=== PATIENT | male | born 1960 | race Hispanic/Latino ===

== ENCOUNTER 2018-11-12 03:25 | Emergency (ER) | payer MEDICARE ==
[2018-11-12] MEDS ORDERED: ONDANSETRON ODT 4 MG TAB PO ONE (04:28)
[2018-11-12] MEDS ORDERED: SODIUM CHLORIDE 0.9% 1000ML 1,000 ML IV ONE ×2 (05:47→06:38)
== END 2018-11-12 08:12 | disposition home or self-care (01) ==
LOC: EDH 03:25
DX: E86.9 Volume depletion, unspecified (principal); E11.65 Type 2 diabetes mellitus with hyperglycemia; M62.82 Rhabdomyolysis; R11.2 Nausea with vomiting, unspecified; I10 Essential (primary) hypertension; Z88.0 Allergy status to penicillin; Z72.0 Tobacco use; Z79.4 Long term (current) use of insulin; Z98.890 Other specified postprocedural states
CPT/HCPCS: 96361; 96374; 99284; J7030 ×2

== ENCOUNTER 2019-11-05 17:44 | Emergency (ER) | payer OTHER, MEDICARE ==
[2019-11-05 19:10] LABS: BASOPHILS % (AUTO) 0.7 % (0.0-5.0); EOSINOPHILS % (AUTO) 0.2 % (0.0-8.0); HEMATOCRIT 41.1 % (42-54); LYMPHOCYTES % (AUTO) 44.1 % (21.0-51.0); MEAN CORPUSCULAR HEMOGLOBIN 33.6 pg (27.0-33.0); MEAN CORPUSCULAR VOLUME 90.9 fL (79-99); MONOCYTES % (AUTO) 4.9 % (3.0-13.0); NEUTROPHILS % (AUTO) 49.9 % (40.0-77.0); PLATELET COUNT (AUTO) 277 K/uL (130-400); RED BLOOD CELL COUNT(AUTO) 4.52 MIL/uL (4.50-6.20); RED CELL DISTRIBUTION WIDTH 11.9 % (11.0-15.5); WHITE BLOOD COUNT (AUTO) 6.2 K/uL (4.8-10.8)
[2019-11-05 19:15] LABS: APPEARANCE,URINE Clear (CLEAR); BILIRUBIN,URINE Negative (NEGATIVE); COLOR,URINE Yellow (YELLOW); GLUCOSE, URINE (UA) >=1000 mg/dL (NEGATIVE); KETONES,URINE 40 mg/dL (NEGATIVE); LEUKOCYTE ESTERASE ,URINE Negative (NEGATIVE); NITRATE,URINE Negative (NEGATIVE); OCCULT BLOOD,URINE Negative (NEGATIVE); PH,URINE 6.5 (5.0-8.0); PROTEIN,URINE Negative (NEGATIVE); UROBILINOGEN,URINE 0.2 mg/dL (0.2-1.0)
[2019-11-05] MEDS ORDERED: THIAMINE HCL 100 MG/ML 2ML VIAL ONE (19:21)
[2019-11-05 19:23] LABS: AMPHET/METH SCREEN,URINE NEGATIVE (NEGATIVE); BARBITURATE SCREEN, URINE NEGATIVE (NEGATIVE); BENZODIAZEPINES SCREEN,URINE NEGATIVE (NEGATIVE); CANNABINOID SCREEN,URINE NEGATIVE (NEGATIVE); COCAINE SCREEN,URINE POSITIVE (NEGATIVE); CREATININE 0.9 mg/dL (0.5-1.5); OPIATE SCREEN,URINE NEGATIVE (NEGATIVE); PHENCYCLIDINE SCREEN,URINE NEGATIVE (NEGATIVE); POTASSIUM 3.5 mmol/L (3.5-5.1)
[2019-11-05 19:24] LABS: BACTERIA,URINE Few /HPF (None Seen); MUCUS,URINE Few LPF (None Seen); SQUAMOUS EPITHELIAL CELL,UR Few /HPF (0-2)
[2019-11-05 19:26] LABS: ALCOHOL, BLOOD 11 mg/dL (0-10)
[2019-11-05 19:28] LABS: BILIRUBIN,TOTAL 0.4 mg/dL (0.2-1.0)
[2019-11-05] MEDS ORDERED: INSULIN HUMULIN R 100 UNIT/ML 3ML ONE (19:42)
[2019-11-05 19:44] LABS: ACETAMINOPHEN < 1 mcg/mL (10-29); SALICYLATE < 2.8 mg/dL (2.8-20.0)
== END 2019-11-06 08:33 | disposition short-term general hospital (02) ==
LOC: EDH 17:44
DX: F10.230 Alcohol dependence with withdrawal, uncomplicated (principal); F14.10 Cocaine abuse, uncomplicated; F32.9 Major depressive disorder, single episode, unspecified; E11.9 Type 2 diabetes mellitus without complications; I10 Essential (primary) hypertension; Z72.0 Tobacco use; Z88.0 Allergy status to penicillin
CPT/HCPCS: 36415; 36600; 80053; 80305; 81001; 82010 ×2; 85025; 96374; 96375; 99285; G0480 ×2; G0481; J1815; J3411

== ENCOUNTER 2019-11-17 04:51 | Observation (INO) | payer OTHER, MEDICARE ==
[~2019-11-17] VITALS: Ht 165.1 cm; Wt 61.2 kg
[2019-11-17 05:21] LABS: APPEARANCE,URINE Clear (CLEAR); BILIRUBIN,URINE Negative (NEGATIVE); COLOR,URINE Yellow (YELLOW); GLUCOSE, URINE (UA) >=1000 mg/dL (NEGATIVE); KETONES,URINE 15 mg/dL (NEGATIVE); LEUKOCYTE ESTERASE ,URINE Small (NEGATIVE); NITRATE,URINE Negative (NEGATIVE); OCCULT BLOOD,URINE Negative (NEGATIVE); PH,URINE 5.5 (5.0-8.0); PROTEIN,URINE POS 1+ mg/dL (NEGATIVE)
[2019-11-17 05:30] LABS: AMPHET/METH SCREEN,URINE NEGATIVE (NEGATIVE); BARBITURATE SCREEN, URINE NEGATIVE (NEGATIVE); BENZODIAZEPINES SCREEN,URINE NEGATIVE (NEGATIVE); CANNABINOID SCREEN,URINE NEGATIVE (NEGATIVE); COCAINE SCREEN,URINE POSITIVE (NEGATIVE); OPIATE SCREEN,URINE NEGATIVE (NEGATIVE); PHENCYCLIDINE SCREEN,URINE NEGATIVE (NEGATIVE)
[2019-11-17 05:31] LABS: BASOPHILS % (AUTO) 0.5 % (0.0-5.0); EOSINOPHILS % (AUTO) 2.7 % (0.0-8.0); HEMATOCRIT 38.4 % (42-54); LYMPHOCYTES % (AUTO) 30.3 % (21.0-51.0); MEAN CORPUSCULAR HEMOGLOBIN 32.8 pg (27.0-33.0); MEAN CORPUSCULAR HGB CONC 35.4 g/dL (32.0-36.0); MEAN CORPUSCULAR VOLUME 92.5 fL (79-99); MONOCYTES % (AUTO) 7.2 % (3.0-13.0); NEUTROPHILS % (AUTO) 59.2 % (40.0-77.0); PLATELET COUNT (AUTO) 282 K/uL (130-400); RED BLOOD CELL COUNT(AUTO) 4.15 MIL/uL (4.50-6.20); RED CELL DISTRIBUTION WIDTH 12.2 % (11.0-15.5); WHITE BLOOD COUNT (AUTO) 7.8 K/uL (4.8-10.8)
[2019-11-17 05:39] LABS: BACTERIA,URINE Few /HPF (None Seen); RBC,URINE 0-1 /HPF (0-1)
[2019-11-17 05:41] LABS: POTASSIUM 4.2 mmol/L (3.5-5.1)
[2019-11-17 05:45] LABS: ALBUMIN 3.7 g/dL (3.5-5.0); BILIRUBIN,TOTAL 0.4 mg/dL (0.2-1.0); SALICYLATE 3.5 mg/dL (2.8-20.0); TOTAL PROTEIN, SERUM 7.1 g/dL (6.0-8.3)
[2019-11-17] MEDS ORDERED: LORAZEPAM 0.5 MG TABLET ONE (09:01)
[2019-11-17] MEDS: THIAMINE HCL 100 MG, FOLIC ACID 1 MG, M.V.I. IV [ADULT] 10 ML in SODIUM CHLORIDE 0.9% 1... IV SCH (12:15)
[2019-11-17] MEDS ORDERED: PHARMACY COMMUNICATION MISC PRN (12:15)
[2019-11-17] MEDS ORDERED: LACTATED RINGERS 1000ML 1,000 ML IV SCH (12:15)
[2019-11-17 13:46] LABS: HEMOGLOBIN A1C 11.8 % (4.0-6.0)
--- NOTE | 2019-11-17 14:00 | NUR ---
CM NOTE/IA UNSUCCESSFUL MEET WITH PATIENT IN ROOM. CURRENTLY ON 1:1 MONITORING. PATIENT ASLEEP. PERSON LISTED MOTHER ON FACESHEET CALLED, NO ANSWER, UNABLE TO LEAVE VOICEMAIL. CM TO F/U FOR IA. Addendum: 11/18/19 at 0959 by ROSANA VILLAFANA RN CM Amended: Links added.
[2019-11-17] MEDS: INSULIN HUMULIN R 100 UNIT/ML 3ML SQ SCH ×2 (14:30→20:20)
[2019-11-17] MEDS ORDERED: INSULIN HUMULIN R 100 UNIT/ML 3ML SQ SCH (16:30)
[2019-11-17] MEDS ORDERED: HYDRALAZINE HCL 20 MG/ML VIAL IV PRN (17:45)
--- NOTE | 2019-11-17 20:00 | NUR ---
ADMIT PT ADMITTED TO ROOM 303, AWAKE BUT CLAIMS OF FEELING ANXIOUS. CLAIMS OF PAIN TO LOWER EXTREMITIES. ADMISSION CARE DONE. ADMISSION DATA BASE COMPLETED. ORIENTED TO ROOM AND UNIT. SITTER WITH PT IN ROOM. IN FOR MORE CARE AND MANAGEMENT. Addendum: 11/17/19 at 2305 by SHYANNE GREY RN RN Amended: Links added.
[2019-11-17] MEDS: CHLORDIAZEPOXIDE HCL 25 MG CAP PO PRN (20:17)
[2019-11-17] MEDS: FAMOTIDINE 20MG TAB 20 MG TAB PO SCH (20:17)
[2019-11-17] MEDS: INSULIN GLARGINE 100 UNITS/ML 10 ML VIAL SQ SCH (20:20)
[2019-11-17 20:26] VITALS: BP 131/83
--- NOTE | 2019-11-17 22:00 | NUR ---
FEED PT ASKS FOR FOOD, PROVIDED WITH SANDWICH AND JUICE. PT ATE WITH GOOD APPETITE. KEPT RESTED. WILL MONITOR PT.
[2019-11-17 23:00] VITALS: BP 135/78
[2019-11-17] MEDS ORDERED: ACETAMINOPHEN 325 MG TAB PO PRN (23:30)
--- NOTE | 2019-11-18 02:00 | NUR ---
ROUNDS PT RESTING WELL, FAIRLY ASLEEP. NO DISTRESS NOTED. KEPT UNDISTURBED FOR NOW. SITTER AT BEDSIDE.
[2019-11-18 03:50] VITALS: BP 126/85
[2019-11-18 04:46] LABS: BASOPHILS % (AUTO) 0.8 % (0.0-5.0); EOSINOPHILS % (AUTO) 0.5 % (0.0-8.0); HEMATOCRIT 36.8 % (42-54); LYMPHOCYTES % (AUTO) 51.9 % (21.0-51.0); MEAN CORPUSCULAR HEMOGLOBIN 33.2 pg (27.0-33.0); MEAN CORPUSCULAR HGB CONC 35.3 g/dL (32.0-36.0); MEAN CORPUSCULAR VOLUME 94.1 fL (79-99); MONOCYTES % (AUTO) 7.8 % (3.0-13.0); NEUTROPHILS % (AUTO) 38.8 % (40.0-77.0); PLATELET COUNT (AUTO) 268 K/uL (130-400); RED BLOOD CELL COUNT(AUTO) 3.91 MIL/uL (4.50-6.20); RED CELL DISTRIBUTION WIDTH 11.9 % (11.0-15.5); WHITE BLOOD COUNT (AUTO) 6.1 K/uL (4.8-10.8)
[2019-11-18 05:07] LABS: ALBUMIN 2.9 g/dL (3.5-5.0); BILIRUBIN,TOTAL 0.5 mg/dL (0.2-1.0); CREATININE 0.8 mg/dL (0.5-1.5); POTASSIUM 3.6 mmol/L (3.5-5.1)
--- NOTE | 2019-11-18 05:28 | NUR ---
ROUNDS PT SLEPT AT LONG INTERVALS DURING THE SHIFT. NO VERBALIZATION OF SUICIDAL IDEATIONS NOTED. KEPT COMFORTABLE. FOR MORE CARE AND MANAGEMENT.
[2019-11-18] MEDS: INSULIN HUMULIN R 100 UNIT/ML 3ML SQ SCH ×4 (06:02→21:06)
[2019-11-18 07:24] VITALS: BP 127/86
[2019-11-18] MEDS ORDERED: INSULIN GLARGINE 100 UNITS/ML 10 ML VIAL SQ SCH (09:00)
--- NOTE | 2019-11-18 09:09 | NUR ---
MET W PATIENT AT BEDSIDE, ONE TO ONE SITTER PRESENT SUICIDAL IDEATION PRECUATIONS. PATIENT PRIOR TO ADMISSION IS ACTIVE, INDPENDENT OF ADLS, NO DME OR PROVIDER, DRIVES- IS CAREGIVER FOR MOTHER AND HAS BEEN LIVING WITH HER. SHE HAS HAD CANCER FOR SEVERAL YEARS AND HE IS THE CAREGIVER, TAKES HER TO HER APPOINTMENTS, ETC. HAS BEEN A CLIENT OF [facility] FOR MANY YEARS. DISABLED SECOND TO MENTAL HEALTH ISSUED. HAS KNOWN THAT HE HAS DIABETES ABOUT TWO YEARS. USED TO GO TO [facility]-" I DON'T KNOW THE NAME OF THE DOCTORS, THEY JUST WANT YOU TO PRAY YOUR TROUBLES AWAY, SO I DON'T GO THERE ANYMORE." DOES NOT CHECK HIS SUGAR, NO GLUCOMETER. WHEN ASKED ABOUT LIVING ARRANGEMENTS, 'I AM HOMELESS NOW, I CAN'T GO BACK THERE' PATIENT CORRECTED MOMS NUMBER IN THE FACE SHEET, CM ASKED IF OK TO TALK TO HER, NO DEFINITE CONSENT TO TALK TO FAMILY GIVEN. PENDING MEDICAL CLEARANCE- CONTROL OF BLOOD SUGAR , THEN SCREENING FOR ADMISSION
[2019-11-18] MEDS: FAMOTIDINE 20MG TAB 20 MG TAB PO SCH ×2 (09:43→21:03)
[2019-11-18] MEDS: ENOXAPARIN SODIUM 40 MG/0.4 ML SYRINGE SQ SCH (09:54)
[2019-11-18] MEDS: LEVOFLOXACIN 500 MG/D5W 100 ML 100 ML IV SCH ×2 (09:59→11:52)
[2019-11-18 10:38] VITALS: BP 127/82
[2019-11-18] MEDS: CHLORDIAZEPOXIDE HCL 25 MG CAP PO PRN (13:25)
[2019-11-18] MEDS: THIAMINE HCL 100 MG, FOLIC ACID 1 MG, M.V.I. IV [ADULT] 10 ML in SODIUM CHLORIDE 0.9% 1... IV SCH (13:28)
--- NOTE | 2019-11-18 14:40 | NUR ---
DR. ROBERTS AT BEDSIDE STATES PATIENT IS CLEARED AND NEEDS TROPICAL TO SCREEN AND FOLLOW UP.
--- NOTE | 2019-11-18 14:47 | NUR ---
Tropical aware spoke with Justyna, pending screening Cleared by Dr. Luke.
[2019-11-18] MEDS: ALPRAZOLAM 1 MG TAB PO SCH ×2 (14:57→21:04)
[2019-11-18 15:56] VITALS: BP 118/85
--- NOTE | 2019-11-18 17:00 | NUR ---
sent info/email to [facility]-- advised pt not medically clear Addendum: 11/19/19 at 1134 by SHARON CAMACHO RN CM Amended: Links added.
--- NOTE | 2019-11-18 19:21 | NUR ---
Tropical screened patient does not meet criteria. social media intern will go and evaluate patient tomorrow.
[2019-11-18 19:45] VITALS: BP 112/78
[2019-11-18] MEDS: VENLAFAXINE HCL XR 37.5 MG CAP PO SCH (21:04)
[2019-11-18] MEDS: INSULIN GLARGINE 100 UNITS/ML 10 ML VIAL SQ SCH (21:07)
[2019-11-19] VITALS (7 sets, daily range): BP systolic 112–149; BP diastolic 67–92
[2019-11-19 05:30] LABS: BASOPHILS % (AUTO) 0.5 % (0.0-5.0); EOSINOPHILS % (AUTO) 0.5 % (0.0-8.0); HEMATOCRIT 37.3 % (42-54); LYMPHOCYTES % (AUTO) 45.7 % (21.0-51.0); MEAN CORPUSCULAR HEMOGLOBIN 33.7 pg (27.0-33.0); MEAN CORPUSCULAR HGB CONC 35.9 g/dL (32.0-36.0); MEAN CORPUSCULAR VOLUME 93.7 fL (79-99); MONOCYTES % (AUTO) 6.6 % (3.0-13.0); NEUTROPHILS % (AUTO) 46.5 % (40.0-77.0); PLATELET COUNT (AUTO) 260 K/uL (130-400); RED BLOOD CELL COUNT(AUTO) 3.98 MIL/uL (4.50-6.20); RED CELL DISTRIBUTION WIDTH 11.5 % (11.0-15.5); WHITE BLOOD COUNT (AUTO) 5.8 K/uL (4.8-10.8)
[2019-11-19] MEDS: INSULIN HUMULIN R 100 UNIT/ML 3ML SQ SCH ×2 (05:48→13:09)
[2019-11-19 05:49] LABS: CREATININE 0.9 mg/dL (0.5-1.5); POTASSIUM 3.6 mmol/L (3.5-5.1)
[2019-11-19] MEDS ORDERED: INSULIN GLARGINE 100 UNITS/ML 10 ML VIAL SQ SCH (08:15)
[2019-11-19] MEDS: FAMOTIDINE 20MG TAB 20 MG TAB PO SCH ×2 (09:51→21:19)
[2019-11-19] MEDS: ALPRAZOLAM 1 MG TAB PO SCH ×3 (09:52→21:19)
[2019-11-19] MEDS: ENOXAPARIN SODIUM 40 MG/0.4 ML SYRINGE SQ SCH (09:55)
--- NOTE | 2019-11-19 11:10 | NUR ---
SS Referral - Suicidal Ideations SW unable to speak to pt who is has been seen by Dr Montes and Roseline. Per nurse Bradley, Dr Montes made changes to medications and pt is sleeping very soundly at this time. Pt is pt at [facility] and has been screened for possible placement. Per [facility], pt does not meet criteria and can dc home or to [facility] and [facility] reports nurse. [facility] to f/u with pt after dc. Per [facility] screening notes, pt is non compliant with medications, and psych care and is drug user. SW to follow and assist as needed
[2019-11-19] MEDS: LEVOFLOXACIN 500 MG/D5W 100 ML 100 ML IV SCH (11:19)
[2019-11-19] MEDS: THIAMINE HCL 100 MG, FOLIC ACID 1 MG, M.V.I. IV [ADULT] 10 ML in SODIUM CHLORIDE 0.9% 1... IV SCH (12:15)
--- NOTE | 2019-11-19 16:28 | NUR ---
CALL REC'D FROM MOTHER STATES SOME ONE FROM [facility] CALLED HER, WHEN SHE CALLED BACK WS REFERRED TO CM, THIS VALIDATION CONSULTANT ADVISED HER THAT THE PATIENT HAD NOT GIVE DIRECT PERMISSION TO DISCUSS HIS CASE. MOM STATES YOU CANNOT TELL ME ANYTHING I DO NOT ALREADY KNOW SHE STATES ' I KNOW HE SAYS HE IS HOMELESS, BUT THE IS NOT, HE IS THE ONE THAT LEFT, I SAID GO IF YOU WANT TO. I AM [age], WITH CANCER AND VERY TIRED AND HE SAYS A LOT OF NEGATIVE THINGS AND DOES A LOT OF BAD THINGS AND I JUST WANT HIM TO COMPLETE ANY PROGRAM THAT HE STATES, COMPLETE IT AND GET BETTER. THAT'S ALL. WILL PASS ON TO SW THAT PATIENT IS NOT HOMELESS Addendum: 11/19/19 at 1633 by SHARON CAMACHO RN CM Amended: Links added.
[2019-11-19] MEDS: METFORMIN HCL 500 MG TABLET PO SCH (17:08)
[2019-11-19] MEDS ORDERED: GLUCAGON 1MG KIT 1 MG ML IM PRN (18:00)
[2019-11-19] MEDS ORDERED: DEXTROSE 50%-WATER 50 ML DISP.SYRIN IV PRN (18:00)
[2019-11-19] MEDS: VENLAFAXINE HCL XR 37.5 MG CAP PO SCH (21:19)
[2019-11-20 03:13] VITALS: BP 124/74
[2019-11-20 05:16] LABS: CREATININE 0.7 mg/dL (0.5-1.5); MAGNESIUM 1.6 mg/dL (1.80-2.40); POTASSIUM 3.5 mmol/L (3.5-5.1)
[2019-11-20 08:00] VITALS: BP 136/96
[2019-11-20] MEDS ORDERED: INSULIN GLARGINE 100 UNITS/ML 10 ML VIAL SQ SCH (10:00)
[2019-11-20] MEDS: FAMOTIDINE 20MG TAB 20 MG TAB PO SCH (10:28)
[2019-11-20] MEDS: METFORMIN HCL 500 MG TABLET PO SCH (10:28)
[2019-11-20] MEDS: ENOXAPARIN SODIUM 40 MG/0.4 ML SYRINGE SQ SCH (10:30)
[2019-11-20 11:33] VITALS: BP 145/92
[2019-11-20] MEDS: LEVOFLOXACIN 500 MG/D5W 100 ML 100 ML IV SCH (11:36)
== END 2019-11-20 14:00 | disposition left against medical advice (07) ==
LOC: EDH 04:51 → EDHIP 11:57 → 3AH 19:44
PROVIDERS: ADMIT Internal Medicine; ATTEND Internal Medicine
DX: F14.90 Cocaine use, unspecified, uncomplicated (principal); R45.851 Suicidal ideations; F10.10 Alcohol abuse, uncomplicated; F31.9 Bipolar disorder, unspecified; E11.65 Type 2 diabetes mellitus with hyperglycemia; F41.1 Generalized anxiety disorder; F60.6 Avoidant personality disorder; F60.7 Dependent personality disorder; H54.62 Unqualified visual loss, left eye, normal vision right eye; Z91.14 Patient's other noncompliance with medication regimen; Z91.5 Personal history of self-harm; Y90.9 Presence of alcohol in blood, level not specified
CPT/HCPCS: 36415 ×4; 80048 ×2; 80053 ×2; 80305; 81001; 82010; 82550; 82948 ×10; 83036; 83735; 84145; 84443; 84484; 85025 ×3; 87088; 96365; 96366 ×4; 96367; 96372 ×5; 99284; G0378 ×14; G0480 ×2; G0481; J1650 ×3; J1815 ×4; J1956 ×3; J3411 ×3; J3490 ×3; J7030 ×3

== ENCOUNTER 2020-08-02 14:43 | Inpatient (IN) | payer OTHER, MEDICARE ==
[~2020-08-02] VITALS: Ht 165.1 cm; Wt 56.2 kg
[2020-08-02] MEDS ORDERED: 0.9%NACL 1000ML 1,000 ML IV ONE (15:00)
[2020-08-02 15:07] LABS: BASOPHILS % (AUTO) 0.3 % (0.0-5.0); HEMATOCRIT 40.3 % (42-54); LYMPHOCYTES % (AUTO) 9.1 % (21.0-51.0); MEAN CORPUSCULAR HEMOGLOBIN 32.4 pg (27.0-33.0); MEAN CORPUSCULAR HGB CONC 33.3 g/dL (32.0-36.0); MEAN CORPUSCULAR VOLUME 97.6 fL (79-99); MONOCYTES % (AUTO) 7.3 % (3.0-13.0); PLATELET COUNT (AUTO) 474 K/uL (130-400); RED BLOOD CELL COUNT(AUTO) 4.13 MIL/uL (4.50-6.20); RED CELL DISTRIBUTION WIDTH 12.3 % (11.0-15.5); WHITE BLOOD COUNT (AUTO) 22.2 K/uL (4.8-10.8)
[2020-08-02 15:35] LABS: ABG BASE EXCESS -26.1 mmol/L (-2.0-3.0); ABG HCO3 2.6 mmol/L (21.0-28.0); ABG OXYGEN SATURATION 98.2 % (95.0-99.0); ABG PCO2 < 15 mmHg (35-48)
[2020-08-02 15:41] LABS: INR 1.31 (0.85-1.15); PROTHROMBIN TIME 13.9 SEC (9.6-11.6)
[2020-08-02 15:42] LABS: PARTIAL THROMBOPLASTIN TIME 31.8 SEC (26.3-35.5)
[2020-08-02] MEDS ORDERED: 0.9%NACL 1000ML 2,000 ML IV ONE (15:43)
[2020-08-02 15:45] LABS: ALBUMIN 2.7 g/dL (3.5-5.0); BILIRUBIN,TOTAL 0.5 mg/dL (0.2-1.0); CREATININE 1.5 mg/dL (0.5-1.5); POTASSIUM 3.7 mmol/L (3.5-5.1); TOTAL PROTEIN, SERUM 8.9 g/dL (6.0-8.3)
[2020-08-02] MEDS ORDERED: SODIUM BICARB 50MEQ 50ML VIAL 50 ML ONE (15:47)
[2020-08-02 15:49] LABS: B-TYPE NATRIURETIC PEPTIDE 30 pg/mL (0-100)
[2020-08-02] MEDS ORDERED: 0.9%NACL 100ML 100 ML IV ONE (15:57)
[2020-08-02] MEDS ORDERED: 0.9%NACL 1000ML 1,000 ML IV SCH (16:00)
[2020-08-02] MEDS ORDERED: INSULIN HUMULIN R 100 UNIT/ML 3ML ONE (16:00)
[2020-08-02] MEDS ORDERED: DEXTROSE 5 %-0.45 % NACL 1,000 ML IV PRN (16:00)
[2020-08-02] MEDS ORDERED: MAGNESIUM 2GM PREMIX 50ML 50 ML IV SCH (16:30)
[2020-08-02 16:33] LABS: APPEARANCE,URINE Cloudy (CLEAR); BILIRUBIN,URINE Negative (NEGATIVE); COLOR,URINE Yellow (YELLOW); GLUCOSE, URINE (UA) >=1000 mg/dL (NEGATIVE); KETONES,URINE >=160 mg/dL (NEGATIVE); LEUKOCYTE ESTERASE ,URINE Small (NEGATIVE); NITRATE,URINE Negative (NEGATIVE); OCCULT BLOOD,URINE Moderate (NEGATIVE); PROTEIN,URINE POS 2+ mg/dL (NEGATIVE); UROBILINOGEN,URINE 0.2 mg/dL (0.2-1.0)
[2020-08-02 16:40] LABS: AMPHET/METH SCREEN,URINE NEGATIVE (NEGATIVE); BARBITURATE SCREEN, URINE NEGATIVE (NEGATIVE); BENZODIAZEPINES SCREEN,URINE NEGATIVE (NEGATIVE); CANNABINOID SCREEN,URINE NEGATIVE (NEGATIVE); COCAINE SCREEN,URINE POSITIVE (NEGATIVE); OPIATE SCREEN,URINE NEGATIVE (NEGATIVE); PHENCYCLIDINE SCREEN,URINE NEGATIVE (NEGATIVE)
[2020-08-02 16:55] LABS: BACTERIA,URINE Few /HPF (None Seen); MUCUS,URINE Few LPF (None Seen); SQUAMOUS EPITHELIAL CELL,UR 0-2 /HPF (0-2); YEAST,URINE BUDDING Moderate /HPF (None Seen)
[2020-08-02] MEDS ORDERED: LEVOFLOXACIN 500 MG/D5W 100 ML 100 ML IV SCH (17:00)
[2020-08-02] MEDS ORDERED: THIAMINE HCL 100 MG/ML 2ML VIAL IVP SCH (17:00)
[2020-08-02] MEDS ORDERED: INSULIN HUMULIN R 100 UNIT/ML 3ML IV SCH (17:15)
[2020-08-02] MEDS ORDERED: PHARMACY COMMUNICATION MISC SCH (17:30)
[2020-08-02] MEDS ORDERED: FOLIC ACID 5 MG/ML VIAL IV SCH (17:30)
[2020-08-02 17:40] LABS: CREATININE 1.4 mg/dL (0.5-1.5); POTASSIUM 4.1 mmol/L (3.5-5.1)
[2020-08-02] MEDS ORDERED: ALOGRITHM #1 100 UNIT INSULIN/NS 100ML IV SCH ×2 (17:45)
[2020-08-02] MEDS ORDERED: 0.9%NACL 50ML 50 ML IV ONE (17:54)
[2020-08-02 20:36] VITALS: BP 126/74
[2020-08-02 21:00] VITALS: BP 116/66
[2020-08-02] MEDS: 0.9%NACL 1000ML 1,000 ML IV SCH ×2 (21:00→21:18)
[2020-08-02] MEDS: FAMOTIDINE 20MG VIAL IV SCH (21:18)
[2020-08-02 22:00] VITALS: BP 127/85
[2020-08-02 23:00] VITALS: BP 125/75
[2020-08-02 23:09] LABS: CREATININE 1.1 mg/dL (0.5-1.5)
[2020-08-02 23:26] LABS: POTASSIUM 2.9 mmol/L (3.5-5.1)
[2020-08-02] MEDS: POTASSIUM CHLORIDE 10MEQ/100ML 100 ML IV PRN (23:28)
[2020-08-02] MEDS ORDERED: D5W-1/2 NS/20MEQ KCL 1,000 ML IV ONE (23:47)
[2020-08-03] VITALS (24 sets, daily range): BP systolic 94–138; BP diastolic 51–86
[2020-08-03] MEDS: 0.9%NACL 1000ML 1,000 ML IV SCH (00:05)
[2020-08-03] MEDS: POTASSIUM CHLORIDE 10MEQ/100ML 100 ML IV PRN (00:19)
[2020-08-03] MEDS ORDERED: POTASSIUM CHLORIDE 10MEQ/100ML 100 ML IV ONE ×2 (01:40→02:32)
[2020-08-03] MEDS ORDERED: ACETAMINOPHEN 325 MG TAB ONE (02:27)
[2020-08-03] MEDS ORDERED: ACETAMINOPHEN 325 MG TAB PO PRN (02:30)
[2020-08-03 04:01] LABS: HEMOGLOBIN A1C 13.2 % (4.0-6.0)
[2020-08-03 04:58] LABS: CREATININE 0.9 mg/dL (0.5-1.5); POTASSIUM 3.4 mmol/L (3.5-5.1)
[2020-08-03] MEDS ORDERED: D5W-1/2 NS/20MEQ KCL 1,000 ML IV ONE (06:03)
[2020-08-03] MEDS: POTASSIUM CHLORIDE 10MEQ/100ML 10 MEQ/100 ML ML IV PRN ×3 (06:08→13:17)
[2020-08-03] MEDS: D5W-1/2 NS/20MEQ KCL 1,000 ML IV SCH ×3 (07:07→19:35)
[2020-08-03] MEDS: ENOXAPARIN SODIUM 30 MG/0.3 ML SQ SCH (09:31)
[2020-08-03] MEDS: FOLIC ACID 5 MG/ML VIAL IV SCH (09:31)
[2020-08-03] MEDS: THIAMINE HCL 100 MG/ML 2ML VIAL IVP SCH (09:32)
[2020-08-03] MEDS ORDERED: CLONAZEPAM 1MG TAB PO SCH (11:00)
[2020-08-03] MEDS ORDERED: LORAZEPAM 2 MG/ML 1 ML VIAL IVP SCH (11:00)
[2020-08-03 12:27] LABS: CREATININE 0.9 mg/dL (0.5-1.5)
[2020-08-03 12:31] LABS: POTASSIUM 2.7 mmol/L (3.5-5.1)
[2020-08-03] MEDS ORDERED: LIDOCAINE HCL-MPF 1% 2ML VIAL IV PRN (12:45)
[2020-08-03] MEDS ORDERED: POTASSIUM CHLORIDE 10% ELIXIR 20 MEQ/15 ML UDCUP PO PRN (12:45)
[2020-08-03] MEDS ORDERED: KCL 20 MEQ ERTAB PO SCH ×2 (14:15→19:45)
[2020-08-03 17:14] LABS: CREATININE 0.8 mg/dL (0.5-1.5); POTASSIUM 3.3 mmol/L (3.5-5.1)
[2020-08-03] MEDS: LEVOFLOXACIN 250 MG/D5W 50ML 50 ML IVPB SCH (18:34)
[2020-08-03] MEDS: CLONAZEPAM 1MG TAB PO SCH (20:10)
[2020-08-03] MEDS: POTASSIUM CHLORIDE 20MEQ/100ML 100 ML IV PRN ×2 (20:10→22:30)
[2020-08-03] MEDS: FAMOTIDINE 20MG VIAL IV SCH (20:11)
[2020-08-03 20:45] LABS: CREATININE 0.8 mg/dL (0.5-1.5)
[2020-08-03 20:46] LABS: POTASSIUM 2.8 mmol/L (3.5-5.1)
[2020-08-03] MEDS: KCL 20 MEQ ERTAB PO PRN ×2 (21:37→23:05)
[2020-08-04] VITALS (13 sets, daily range): BP systolic 91–126; BP diastolic 61–83
[2020-08-04] MEDS: D5W-1/2 NS/20MEQ KCL 1,000 ML IV SCH ×2 (00:17→05:45)
[2020-08-04] MEDS: POTASSIUM CHLORIDE 20MEQ/100ML 100 ML IV PRN ×2 (00:36→21:28)
[2020-08-04 00:44] LABS: CREATININE 0.7 mg/dL (0.5-1.5); POTASSIUM 3.6 mmol/L (3.5-5.1)
[2020-08-04 04:19] LABS: CREATININE 0.7 mg/dL (0.5-1.5); POTASSIUM 3.6 mmol/L (3.5-5.1)
[2020-08-04 05:30] LABS: BASOPHILS % (AUTO) 0.2 % (0.0-5.0); EOSINOPHILS % (AUTO) 0.1 % (0.0-8.0); HEMATOCRIT 33.9 % (42-54); LYMPHOCYTES % (AUTO) 10.9 % (21.0-51.0); MEAN CORPUSCULAR HEMOGLOBIN 32.3 pg (27.0-33.0); MEAN CORPUSCULAR HGB CONC 36.3 g/dL (32.0-36.0); MONOCYTES % (AUTO) 11.4 % (3.0-13.0); NUCLEATED RED BLOOD CELLS 0.2 % (0.0-0.19); PLATELET COUNT (AUTO) 360 K/uL (130-400); RED BLOOD CELL COUNT(AUTO) 3.81 MIL/uL (4.50-6.20); RED CELL DISTRIBUTION WIDTH 12.1 % (11.0-15.5); WHITE BLOOD COUNT (AUTO) 12.5 K/uL (4.8-10.8)
[2020-08-04] MEDS ORDERED: PHARMACY COMMUNICATION MISC SCH (07:45)
[2020-08-04] MEDS: THIAMINE HCL 100 MG/ML 2ML VIAL IVP SCH (07:55)
[2020-08-04 07:56] LABS: CREATININE 0.8 mg/dL (0.5-1.5); POTASSIUM 3.5 mmol/L (3.5-5.1)
[2020-08-04] MEDS: FOLIC ACID 5 MG/ML VIAL IV SCH (07:56)
[2020-08-04] MEDS: CLONAZEPAM 1MG TAB PO SCH ×2 (07:56→21:35)
[2020-08-04] MEDS: ENOXAPARIN SODIUM 30 MG/0.3 ML SQ SCH (07:56)
[2020-08-04] MEDS ORDERED: VANCOMYCIN PROTOCOL PER PHARMACY IV SCH (08:00)
[2020-08-04] MEDS: LACTATED RINGERS IV SCH ×2 (08:18→13:10)
[2020-08-04] MEDS: DEXTROSE 5% IV SCH ×2 (08:18→13:10)
[2020-08-04] MEDS: POTASSIUM CHLORIDE IV SCH ×2 (08:18→13:10)
[2020-08-04] MEDS ORDERED: INSULIN GLARGINE 100 UNITS/ML 10 ML VIAL SQ SCH (08:45)
[2020-08-04] MEDS: VANCOMYCIN 1G/250ML KIT 250 ML IV SCH ×2 (11:41→21:35)
[2020-08-04 11:58] LABS: CREATININE 0.7 mg/dL (0.5-1.5); POTASSIUM 3.3 mmol/L (3.5-5.1)
[2020-08-04] MEDS: INSULIN HUMULIN R 100 UNIT/ML 3ML SQ SCH ×5 (12:18→21:39)
[2020-08-04 17:22] LABS: CREATININE 0.8 mg/dL (0.5-1.5); POTASSIUM 3.1 mmol/L (3.5-5.1)
[2020-08-04] MEDS: LEVOFLOXACIN 250 MG/D5W 50ML 50 ML IVPB SCH (17:32)
[2020-08-04 20:29] LABS: POTASSIUM 2.9 mmol/L (3.5-5.1)
[2020-08-04] MEDS: FAMOTIDINE 20MG VIAL IV SCH (21:31)
[2020-08-04] MEDS: DEXTROSE 5%-LACTATED RINGERS 1,000 ML IV SCH (21:35)
[2020-08-05 03:50] VITALS: BP 141/85
[2020-08-05 05:30] LABS: CREATININE 0.7 mg/dL (0.5-1.5)
[2020-08-05 05:37] LABS: POTASSIUM 2.4 mmol/L (3.5-5.1)
[2020-08-05] MEDS: DEXTROSE 5%-LACTATED RINGERS 1,000 ML IV SCH (06:16)
[2020-08-05] MEDS: KCL 20 MEQ ERTAB PO PRN (06:18)
[2020-08-05] MEDS: INSULIN HUMULIN R 100 UNIT/ML 3ML SQ SCH ×2 (06:24→06:25)
[2020-08-05] MEDS ORDERED: INSULIN GLARGINE 100 UNITS/ML 10 ML VIAL SQ SCH (06:45)
[2020-08-05 07:09] LABS: BASOPHILS % (AUTO) 0.2 % (0.0-5.0); EOSINOPHILS % (AUTO) 0.4 % (0.0-8.0); HEMATOCRIT 33.9 % (42-54); LYMPHOCYTES % (AUTO) 13.3 % (21.0-51.0); MEAN CORPUSCULAR HEMOGLOBIN 31.7 pg (27.0-33.0); MEAN CORPUSCULAR HGB CONC 35.1 g/dL (32.0-36.0); MEAN CORPUSCULAR VOLUME 90.4 fL (79-99); MONOCYTES % (AUTO) 10.2 % (3.0-13.0); NEUTROPHILS % (AUTO) 75.6 % (40.0-77.0); PLATELET COUNT (AUTO) 351 K/uL (130-400); RED BLOOD CELL COUNT(AUTO) 3.75 MIL/uL (4.50-6.20); RED CELL DISTRIBUTION WIDTH 12.4 % (11.0-15.5); WHITE BLOOD COUNT (AUTO) 12.4 K/uL (4.8-10.8)
[2020-08-05] MEDS ORDERED: INSULIN HUMULIN R 100 UNIT/ML 3ML SQ SCH (07:30)
[2020-08-05 07:37] LABS: CREATININE 0.8 mg/dL (0.5-1.5)
[2020-08-05 07:41] LABS: POTASSIUM 2.9 mmol/L (3.5-5.1)
[2020-08-05 08:02] VITALS: BP 111/71
[2020-08-05] MEDS: VANCOMYCIN 1G/250ML KIT 250 ML IV SCH (08:38)
[2020-08-05] MEDS: ENOXAPARIN SODIUM 30 MG/0.3 ML SQ SCH (08:39)
[2020-08-05] MEDS: THIAMINE HCL 100 MG/ML 2ML VIAL IVP SCH (08:40)
[2020-08-05] MEDS: CLONAZEPAM 1MG TAB PO SCH (08:42)
[2020-08-05] MEDS: FOLIC ACID 5 MG/ML VIAL IV SCH (08:51)
[2020-08-05] MEDS ORDERED: COMPOUND IV REFRIGERATED 1 EACH IVSOLN MISC PRN (10:45)
[2020-08-05 11:28] VITALS: BP 115/68
== END 2020-08-05 14:50 | disposition left against medical advice (07) | DRG 871 ==
LOC: EDH 14:43 → EDHIP 16:13 → 2DH 20:06 → 3CH 08-04 16:29
PROVIDERS: ADMIT Internal Medicine; ATTEND Internal Medicine
DX: A41.01 Sepsis due to Methicillin susceptible Staphylococcus aureus (principal); E11.10 Type 2 diabetes mellitus with ketoacidosis without coma; E43 Unspecified severe protein-calorie malnutrition; N17.9 Acute kidney failure, unspecified; N39.0 Urinary tract infection, site not specified; D72.829 Elevated white blood cell count, unspecified; F14.10 Cocaine abuse, uncomplicated; E86.0 Dehydration; E87.6 Hypokalemia; F31.9 Bipolar disorder, unspecified; F41.1 Generalized anxiety disorder; G62.9 Polyneuropathy, unspecified; H54.62 Unqualified visual loss, left eye, normal vision right eye; I10 Essential (primary) hypertension; F41.9 Anxiety disorder, unspecified; F19.10 Other psychoactive substance abuse, uncomplicated; Z91.19 Patient's noncompliance with other medical treatment and regimen; Z59.0 Homelessness; Z79.4 Long term (current) use of insulin; Z83.3 Family history of diabetes mellitus; Z68.20 Body mass index [BMI] 20.0-20.9, adult; Z20.822 Contact with and (suspected) exposure to COVID-19
CPT/HCPCS: 36415; 36600; 70450; 71045; 80048; 80053; 80305; 81001; 82010; 82435; 82550; 82803; 82947; 82948; 83036; 83605; 83690; 83735; 83880; 84132; 84145; 84295; 84484; 85018; 85025; 85610; 85651; 85730; 86701; 86704; 87040; 87077; 87088; 87186; 87390; 87426; 87520; 93005; 93306; 93356; 99291; G0378; J1650; J1815; J1956; J2060; J3370; J3411; J3475; J3480; J3490; J7030; U0003